=== PATIENT | female | born 1955 | race Caucasian/White ===

== ENCOUNTER → 2017-04-28 | Outpatient (CLI) | payer BC ==
[~2017-04-28] MED LIST: PROHANCE 279.3MG/ML 15ML VIAL (A9576) As Ordered ONE; PROHANCE 279.3MG/ML 5ML VIAL (A9576) As Ordered ONE
--- NOTE | 2017-05-01 20:40 | REP ---
MRI RIGHT KNEE WITHOUT AND WITH CONTRAST: TECHNIQUE: Multiple sequences obtained in the axial, coronal and sagittal planes prior to and following the intravenous administration of 20 mL ProHance. Correlation made with plain films from [facility] on 04/11/2017. Plain radiographs show an area of heterogeneous sclerotic density in the proximal tibia. On MRI there is mixed signal on both T1 and T2-weighted images with hypointense foci on T1 and multiple tiny hyperintense foci on T2 in this region. There is a central area of rounded T2 hyperintensity approximately 1 cm in diameter. The findings are compatible with chondroid matrix. Following the intravenous administration of gadolinium there is some thin peripheral enhancement of the central 1 cm high signal focus. I also suspect some tiny foci of subtle enhancement in the area immediately surrounding the central dominant focus. There is no associated endosteal scalloping or cortical destruction. No adjacent soft tissue mass is seen. Differential diagnosis would include enchondroma or low grade chondrosarcoma. The medial meniscus is torn. There also appears to be tear of the anterior cruciate ligament. The collateral ligaments and extensor mechanism appear intact. 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 There is moderate diffuse spurring. There is a moderate joint effusion with an elongated loculated popliteal cyst noted medially which is fairly thin. Synovial thickening is noted in the suprapatellar bursa. IMPRESSION: Bone lesion in the proximal tibia has an appearance compatible with a chondroid matrix. The area involved is approximately 4 cm in maximum diameter craniocaudally and about 2.8 cm in AP and transverse dimensions. There is no endosteal scalloping or cortical destruction and no evidence of associated soft tissue mass. There appear to be some subtle areas of internal enhancement. Differential diagnosis would include enchondroma versus low grade chondrosarcoma. A bone scan may be helpful to further evaluate. There is a tear of the medial meniscus. The anterior cruciate ligament appears torn. There is diffuse chondromalacia most significantly in the medial joint compartment. There is a moderate joint effusion. There is a thin popliteal cyst which appears loculated. Signed by Yusuf Garcia MD 05/01/2017 08:47 P
== END ==
LOC: M RAD 16:03
PROVIDERS: ATTEND Orthopaedic Surgery
DX: M89.9 Disorder of bone, unspecified (principal); S83.241A Other tear of medial meniscus, current injury, right knee, initial encounter; S83.511A Sprain of anterior cruciate ligament of right knee, initial encounter; X58.XXXA Exposure to other specified factors, initial encounter; Y92.89 Other specified places as the place of occurrence of the external cause; Y93.89 Activity, other specified; Y99.8 Other external cause status; M94.261 Chondromalacia, right knee; M25.461 Effusion, right knee; M71.21 Synovial cyst of popliteal space [Baker], right knee; M25.561 Pain in right knee; M25.562 Pain in left knee; G89.29 Other chronic pain; M17.0 Bilateral primary osteoarthritis of knee
CPT/HCPCS: 73723; A9576

== ENCOUNTER 2020-01-13 05:12 | Emergency (ER) | payer BC ==
[~2020-01-13] VITALS: Ht 165.1 cm; Wt 114.5 kg
[2020-01-13] MEDS ORDERED: VITA50005 PO (05:21)
[2020-01-13] MEDS ORDERED: LOSA50TA88 PO (05:21)
[2020-01-13] MEDS ORDERED: PERCOCET 5MG/325MG TAB PO ONE (06:00)
[2020-01-13] MEDS ORDERED: diazePAM 2 MG TAB PO ONE (06:00)
--- NOTE | 2020-01-13 07:25 | REPVR ---
PROCEDURE INFORMATION: Exam: XR Cervical Spine, 6 or More Views Exam date and time: 01/13/2020 6:35 AM Age: 64 years old Clinical indication: Other: Torticollis TECHNIQUE: Imaging protocol: XR of the cervical spine, 6 or more views. COMPARISON: No relevant prior studies available. FINDINGS: Vertebrae: AP, lateral, lateral swimmer's, odontoid, oblique, and lateral flexion/extension views of the cervical spine were obtained. There is a mild cervicothoracic scoliosis convex right and straightening of the normal cervical lordosis. This may be positional or secondary to muscle spasm. In the neutral position, there is mild anterolisthesis of C3-C4 and C4-C5 which appears degenerative related to facet arthrosis. This is stable in flexion and extension. No instability. Multilevel degenerative disc disease/spondylosis with disc space narrowing, degenerative endplate changes and endplate osteophyte formation, most pronounced at C6-C7. Multilevel facet arthrosis. No acute fracture. Multilevel bilateral bony foraminal narrowing C3-C7. Soft tissues: Multiple surgical clips within the soft tissues of the lower neck. No prevertebral swelling. IMPRESSION: 1. Positional changes versus muscle spasm. 2. Mild degenerative anterolisthesis C3-C4 and C4-C5 which is stable in flexion and extension. No evidence of instability. 3. Multilevel degenerative disc disease/spondylosis and facet arthrosis. Electronically signed by: Sterling Burns On 01/13/2020 07:24:57 AM
[2020-01-13] MEDS ORDERED: CYCL5TAB PO (08:00)
[2020-01-13 08:14] VITALS: BP 172/80
== END 2020-01-13 08:18 | disposition home or self-care (01) ==
LOC: M ED 05:12
DX: S13.4XXA Sprain of ligaments of cervical spine, initial encounter (principal); Y92.9 Unspecified place or not applicable; Y93.K1 Activity, walking an animal; Y99.9 Unspecified external cause status; M43.12 Spondylolisthesis, cervical region; M47.812 Spondylosis without myelopathy or radiculopathy, cervical region; I10 Essential (primary) hypertension

== ENCOUNTER → 2020-11-03 | Outpatient (CLI) | payer BC ==
[~2020-11-03] MED LIST changes: +CYCL5TAB PO; +ERGO500029 PO; +LOSA50TA88 PO; -PROHANCE 279.3MG/ML 15ML VIAL (A9576) As Ordered ONE; -PROHANCE 279.3MG/ML 5ML VIAL (A9576) As Ordered ONE
[2020-11-03 09:19] LABS: BASO # 0.1 10^3/uL (0.0-0.2); BASO % 0.8 % (0.0-1.0); EOS # 0.5 10^3/uL (0.0-0.5); EOS % 4.9 % (0.0-3.0); HEMATOCRIT 42.6 % (36.0-47.0); HEMOGLOBIN 13.1 g/dl (12.0-15.5); LYMPH # 2.6 10^3/uL (1.5-5.0); LYMPH % 28.9 % (24.0-44.0); MEAN CORPUSCULAR HEMOGLOBIN 28.2 pg (27.0-33.0); MEAN CORPUSCULAR HGB CONC 30.8 g/dl (32.0-36.5); MEAN CORPUSCULAR VOLUME 91.8 fl (80.0-96.0); MONO # 0.8 10^3/uL (0.0-0.8); MONO % 8.6 % (2.0-8.0); NEUTROPHILS # 5.1 10^3/uL (1.5-8.5); NEUTROPHILS % 56.3 % (36.0-66.0); PLATELET COUNT, AUTOMATED 223 10^3/uL (150-450); RED BLOOD COUNT 4.64 10^6/uL (4.00-5.40); WHITE BLOOD COUNT 9.1 10^3/uL (4.0-10.0)
[2020-11-03 09:59] LABS: ALBUMIN 3.5 GM/DL (3.2-5.2); ALT/SGPT 18 U/L (12-78); BILIRUBIN,TOTAL 0.4 MG/DL (0.2-1.0); BLOOD UREA NITROGEN 25 MG/DL (7-18); CARBON DIOXIDE LEVEL 30 MEQ/L (21-32); CHLORIDE LEVEL 108 MEQ/L (98-107); CHOLESTEROL LEVEL 202 MG/DL (<200); CREATININE FOR GFR 0.58 MG/DL (0.55-1.30); GLOMERULAR FILTRATION RATE > 60.0 (>45); GLUCOSE, FASTING 104 MG/DL (70-100); HDL CHOLESTEROL 50 MG/DL (>40); LDL CHOLESTEROL 116 MG/DL (<100); NON-HDL-C 152 MG/DL; POTASSIUM SERUM 4.8 MEQ/L (3.5-5.1); SODIUM LEVEL 141 MEQ/L (136-145); TOTAL PROTEIN 6.4 GM/DL (6.4-8.2); TRIGLYCERIDES LEVEL 178 MG/DL (<150)
== END ==
LOC: M LAB 08:03
PROVIDERS: ATTEND Nurse Practitioner Family
DX: I10 Essential (primary) hypertension (principal)

== ENCOUNTER → 2020-11-22 | Outpatient (CLI) | payer BC ==
--- NOTE | 2020-11-22 10:41 | REP ---
INDICATION: NON TOXIC SINGLE THYROID NODULE COMPARISON: 09/17/2016 TECHNIQUE: Garcia scale and color evaluation of the thyroid gland using the linear high frequency transducer. FINDINGS: The thyroid gland is normal in contour, shape, size, and echogenicity. Right thyroid lobe measures 3.8 x 1.5 x 1.3 cm and includes stable 2 mm midpole cyst. Cm. Isthmus measures 3 mm mm in width. Left thyroid lobe measures 3.6 x 1.2 x 1.5 cm. A 9 x 4 x 4 mm hypoechoic solid nodules identified along the inferior margin posteriorly to the left thyroid lobe which may represent parathyroid gland. IMPRESSION: Essentially normal examination. Small hypoechoic solid nodule along the inferior posterior margin of the left thyroid lobe possibly parathyroid gland. Consider follow-up examination at 6-9 months. <Electronically signed by Sterling Coates > 11/22/20 [id number]
== END ==
LOC: M RAD 09:45
PROVIDERS: ATTEND Nurse Practitioner Family
DX: E04.1 Nontoxic single thyroid nodule (principal)

== ENCOUNTER → 2022-08-30 | Outpatient (CLI) | payer MEDICARE ==
[~2022-08-30] MED LIST changes: +LOSA50TA28 PO; -LOSA50TA88 PO
[2022-08-30 15:45] LABS: ALBUMIN 3.8 G/DL (3.2-5.2); ALKALINE PHOSPHATASE 95 U/L (46-116); ALT/SGPT 21 U/L (7.0-40); AST/SGOT 18 U/L (<34); BILIRUBIN,TOTAL 0.4 MG/DL (0.3-1.2); BLOOD UREA NITROGEN 12 MG/DL (9-23); CALCIUM LEVEL 8.9 MG/DL (8.3-10.6); CARBON DIOXIDE LEVEL 28 MMOL/L (20-31); CHLORIDE LEVEL 109 MMOL/L (98-107); CHOLESTEROL LEVEL 182 MG/DL (<200); CHOLESTEROL RISK RATIO 3.84 (<5); CREATININE FOR GFR 0.64 MG/DL (0.55-1.30); GLOMERULAR FILTRATION RATE > 60.0 (>45); GLUCOSE, FASTING 95 MG/DL (74-106); HDL CHOLESTEROL 47.3 MG/DL (>40); LDL CHOLESTEROL 105.3 MG/DL (<100); NON-HDL-C 134.7 MG/DL; POTASSIUM SERUM 4.3 MMOL/L (3.5-5.1); PTH INTACT 59.6 PG/ML (18.5-88.0); SODIUM LEVEL 144 MMOL/L (136-145); TOTAL PROTEIN 6.3 G/DL (5.7-8.2); TRIGLYCERIDES LEVEL 147 MG/DL (<150)
[2022-08-30 15:47] LABS: TOTAL 25(OH) VITAMIN D 46.4 NG/ML (20.0-100.0)
[2022-08-30 15:49] LABS: HEMOGLOBIN A1c 5.3 % (4.0-6.0)
== END ==
LOC: M PLALAB 12:22
PROVIDERS: ATTEND Family Medicine
DX: E55.9 Vitamin D deficiency, unspecified (principal); I10 Essential (primary) hypertension; E66.01 Morbid (severe) obesity due to excess calories; Z86.39 Personal history of other endocrine, nutritional and metabolic disease

== ENCOUNTER → 2022-09-09 | Outpatient (CLI) | payer MEDICARE | LOC: M RAD 07:21 | PROVIDERS: ATTEND Family Medicine | DX: M79.662 Pain in left lower leg (principal) ==

== ENCOUNTER → 2023-12-12 | Outpatient (REF) | payer MEDICARE | LOC: M SFHCPLAZ 16:44 | PROVIDERS: ATTEND Family Medicine | DX: J02.9 Acute pharyngitis, unspecified (principal) ==